=== PATIENT | male | born 1970 | race Caucasian/White ===

== ENCOUNTER → 2018-03-12 | Outpatient (CLI) | payer BC ==
[2018-03-12 11:27] LABS: ALBUMIN 4.5 g/dL (3.5-5.0); BUN/CREATININE RATIO 23.5 (6.0-26.0); CALCIUM 9.4 mg/dL (8.4-10.2); POTASSIUM 4.6 mmol/L (3.6-5.0); TOTAL BILIRUBIN 0.7 mg/dL (0.2-1.3); TOTAL PROTEIN 8.4 g/dL (6.3-8.2)
[2018-03-12 11:29] LABS: HEMATOCRIT 45.1 % (42.0-52.0); HEMOGLOBIN 14.7 g/dL (13.5-18.0); MEAN PLATELET VOLUME 10.8 fl (7.4-10.4); RED BLOOD COUNT 4.96 M/mm3 (4.20-5.60); RED CELL DISTRIBUTION WIDTH 12.3 % (11.5-14.5); WHITE BLOOD COUNT 6.3 K/mm3 (4.8-10.8)
== END ==
LOC: RAD 10:49
PROVIDERS: Family Medicine
DX: R10.11 Right upper quadrant pain (principal); K92.1 Melena; Z23 Encounter for immunization

== ENCOUNTER → 2018-03-20 | Outpatient (CLI) | payer BC | LOC: LAB 11:59 | DX: K92.1 Melena (principal); R10.11 Right upper quadrant pain; Z23 Encounter for immunization ==

== ENCOUNTER 2019-01-27 14:30 | Outpatient (RCR) | payer BC | END 2019-01-27 15:00 | LOC: PT 14:30 | DX: S46.911A Strain of unspecified muscle, fascia and tendon at shoulder and upper arm level, right arm, initial encounter (principal) ==

== ENCOUNTER → 2019-04-05 | Outpatient (CLI) | payer BC | LOC: LAB 17:18 | DX: R35.0 Frequency of micturition (principal) ==

== ENCOUNTER → 2019-04-14 | Outpatient (CLI) | payer BC ==
[2019-04-14 18:13] LABS: URINE COLOR YELLOW
[2019-04-14 18:14] LABS: URINE APPEARANCE CLEAR; URINE BILIRUBIN NEGATIVE (NEGATIVE); URINE BLOOD TRACE (NEGATIVE); URINE GLUCOSE NEGATIVE (NEGATIVE); URINE KETONE NEGATIVE (NEGATIVE); URINE LEUKOCYTE ESTERASE TRACE (NEGATIVE); URINE NITRATE NEGATIVE (NEGATIVE); URINE PROTEIN(semi-quant) NEGATIVE (NEGATIVE); URINE UROBILINOGEN NORMAL (NORMAL)
== END ==
LOC: LAB 15:48
PROVIDERS: Family Medicine
DX: R30.0 Dysuria (principal)

== ENCOUNTER → 2019-08-23 | Outpatient (CLI) | payer BC ==
[2019-08-23 12:18] LABS: BASO # 0.1 (0.02-0.10); EOS # 0.1 (0.04-0.40); EOS % 2.1 % (0.0-4.0); HEMATOCRIT 43.6 % (42.0-52.0); HEMOGLOBIN 14.3 g/dL (13.5-18.0); LYMPH# 1.4 (1.50-4.00); MEAN CELL VOLUME 91 fl (78-100); MEAN CORPUSCULAR HEMOGLOBIN 30 pg (27-31); MEAN CORPUSCULAR HGB CONC 33 g/dL (33-37); MEAN PLATELET VOLUME 10.3 fl (7.4-10.4); MONO # 0.5 (0.20-0.80); NEU # 4.5 (1.40-6.50); PLATELET COUNT 258 K/mm3 (130-400); RED CELL DISTRIBUTION WIDTH 12.1 % (11.5-14.5); WHITE BLOOD COUNT 6.5 K/mm3 (4.8-10.8)
[2019-08-23 12:28] LABS: ALBUMIN 4.2 g/dL (3.5-5.0); POTASSIUM 4.2 mmol/L (3.5-5.1)
[2019-08-23 12:29] LABS: CALCIUM 9.7 mg/dL (8.3-10.5)
[2019-08-23 12:30] LABS: TOTAL PROTEIN 7.3 g/dL (6.4-8.3)
[2019-08-23 12:32] LABS: TOTAL BILIRUBIN 0.4 mg/dL (0.2-1.2)
[2019-08-23 12:37] LABS: MAGNESIUM 1.91 mg/dL (1.60-2.60)
== END ==
LOC: RAD 12:05
PROVIDERS: Family Medicine
DX: M46.82 Other specified inflammatory spondylopathies, cervical region (principal)

== ENCOUNTER 2021-03-23 11:11 | Emergency (ER) | payer BC ==
[2021-03-23 11:57] LABS: BASO # 0.05 (0.02-0.10); EOS # 0.12 (0.04-0.40); EOS % 2.2 % (0.0-4.0); HEMATOCRIT 44.2 % (42.0-52.0); HEMOGLOBIN 14.9 g/dL (13.5-18.0); LYMPH# 1.22 (1.50-4.00); MEAN CELL VOLUME 90 fl (78-100); MEAN CORPUSCULAR HEMOGLOBIN 30 pg (27-31); MEAN CORPUSCULAR HGB CONC 34 g/dL (33-37); MEAN PLATELET VOLUME 10.2 fl (7.4-10.4); MONO # 0.38 (0.20-0.80); NEU # 3.73 (1.40-6.50); PLATELET COUNT 234 K/mm3 (130-400); RED BLOOD COUNT 4.92 M/mm3 (4.20-5.60); RED CELL DISTRIBUTION WIDTH 11.5 % (11.5-14.5); WHITE BLOOD COUNT 5.5 K/mm3 (4.8-10.8)
[2021-03-23 12:11] LABS: PARTIAL THROMBOPLASTIN TIME 25.5 SECONDS (21.0-32.0); PROTHROMBIN TIME 10.4 SECONDS (9.0-12.0)
[2021-03-23 12:43] LABS: ALBUMIN 4.2 g/dL (3.5-5.0); POTASSIUM 4.6 mmol/L (3.5-5.1)
[2021-03-23 12:44] LABS: SODIUM 138 mmol/L (136-145)
[2021-03-23 12:45] LABS: CALCIUM 9.4 mg/dL (8.3-10.5)
[2021-03-23 12:46] LABS: GLUCOSE 127 mg/dL (75-110); TOTAL PROTEIN 7.5 g/dL (6.4-8.3)
[2021-03-23 12:47] LABS: CARBON DIOXIDE 25 mmol/L (22-29)
[2021-03-23 12:48] LABS: TOTAL BILIRUBIN 0.5 mg/dL (0.2-1.2)
[2021-03-23 12:51] LABS: AST-SGOT 17 U/L (5-34)
[2021-03-23 12:52] LABS: ALT/SGPT 18 U/L (0-55)
[2021-03-23 12:53] LABS: LIPASE 24 U/L (8-78)
[2021-03-23 13:07] LABS: TROPONIN-I < 0.03 ng/mL (<0.030)
[2021-03-23 13:11] LABS: URINE APPEARANCE HAZY; URINE BILIRUBIN NEGATIVE (NEGATIVE); URINE BLOOD NEGATIVE (NEGATIVE); URINE COLOR YELLOW; URINE GLUCOSE NEGATIVE (NEGATIVE); URINE KETONE NEGATIVE (NEGATIVE); URINE LEUKOCYTE ESTERASE NEGATIVE (NEGATIVE); URINE NITRATE NEGATIVE (NEGATIVE); URINE PROTEIN(semi-quant) NEGATIVE (NEGATIVE); URINE UROBILINOGEN NORMAL (NORMAL); URINE WBC 0-1 /hpf (0-3)
[2021-03-23 14:58] VITALS: BP 136/87
== END 2021-03-23 14:59 | disposition home or self-care (01) ==
LOC: ED 11:11
PROVIDERS: Nurse Practitioner
DX: R07.9 Chest pain, unspecified (principal)